=== PATIENT | female | born 1960 | race African-American/Black ===

== ENCOUNTER 2021-01-09 11:36 | Inpatient (IN) | payer BC ==
[~2021-01-09] VITALS: Ht 165.1 cm; Wt 90.8 kg
[2021-01-09] MEDS ORDERED: IBUPROFEN 600 MG TABLET. PO ONE (12:00)
[2021-01-09] MEDS ORDERED: IV NORMAL SALINE 1,000ML 1,000 ML IV ONE ×2 (12:00→13:15)
[2021-01-09 12:25] LABS: BASO % 0 % (0-3); EOS % 0 % (0-3); HEMATOCRIT 42.3 % (36.0-47.0); HEMOGLOBIN 14.3 g/dL (12.0-15.5); LYMPH # 0.9 x10^3/uL (1.0-4.8); LYMPH % 13 % (24-48); MEAN CORPUSCULAR HEMOGLOBIN 28 pg (25-35); MEAN CORPUSCULAR HGB CONC 34 g/dL (31-37); MEAN CORPUSCULAR VOLUME 84 fL (79-100); MONO # 0.5 x10^3/uL (0.0-1.1); MONO % 7 % (0-9); NEUT # 5.7 x10^3uL (1.8-7.7); NEUT % 80 % (31-73); PLATELET COUNT 130 x10^3/uL (140-400); RED BLOOD COUNT 5.02 x10^6/uL (3.50-5.40); RED CELL DISTRIBUTION WIDTH 14.4 % (11.5-14.5); WHITE BLOOD COUNT 7.1 x10^3/uL (4.0-11.0)
--- NOTE | 2021-01-09 12:36 | PHYS DOC ---
Past History Past Surgical History: No Surgical History (GUSTAVO RIVERA APRN) General Adult EDM: Chief Complaint: FEVER HPI: HPI: Patient is a 60-year-old female who presents with for fever and balance issues. states "she has been walking funny for a couple of days". Patient denies weakness, dizziness, chest pain, cough, nausea/vomiting/diarrhea. "I felt a little bit short of breath". Patient's temperature on arrival is 103. Denies taking medication prior to arrival. Patient is alert and oriented x3. Patient states "I got the Holger & Holger vaccine". Denies medical history. (GUSTAVO RIVERA APRN) Review of Systems: Review of Systems: Constitutional: Reports fever and chills Eyes: Denies change in visual acuity HENT: Denies nasal congestion or sore throat Respiratory: Denies cough or shortness of breath Cardiovascular: Denies chest pain or edema GI: Denies abdominal pain, nausea, vomiting, bloody stools or diarrhea : Denies dysuria Musculoskeletal: Denies back pain or joint pain Integument: Denies rash Neurologic: Denies headache, focal weakness or sensory changes. Reports balance issues with walking Endocrine: Denies polyuria or polydipsia Lymphatic: Denies swollen glands Psychiatric: Denies depression or anxiety (GUSTAVO RIVERA APRN) Current Medications: Current Meds: Current Medications Medications (Trade) Dose Ordered Sig/Abdias Start Time Stop Time Status Last Admin Dose Admin Ibuprofen (Motrin) 600 mg 1X ONCE 01/09/21 12:00 01/09/21 12:01 UNV Sodium Chloride 1,000 ml @ 1,000 mls/hr 1X ONCE 01/09/21 12:00 01/09/21 12:59 UNV (GUSTAVO RIVERA MENTAL HEALTH COUNSELOR) Physical Exam: PE: Constitutional: Well developed, well nourished, no acute distress. Decreased awareness, delayed responses HENT: Normocephalic, atraumatic, bilateral external ears normal, oropharynx moist, no oral exudates, nose normal. [] Eyes: PERRLA, EOMI, conjunctiva normal, no discharge. [] Neck: Normal range of motion, no tenderness, supple, no stridor. [] Cardiovascular:Heart rate sinus tachycardia, no murmur [] Lungs & Thorax: Bilateral breath sounds clear to auscultation [] Abdomen: Bowel sounds normal, soft, no tenderness, no masses, no pulsatile masses. [] Skin: Warm, dry, no erythema, no rash. [] Back: No tenderness, no CVA tenderness. [] Extremities: No tenderness, no cyanosis, no clubbing, ROM intact, no edema. [] Neurologic: unstable gait,Alert and oriented X 3, normal sensory function, no focal deficits noted. [] Psychologic: Affect normal, judgement normal, mood normal. [] (GUSTAVO RIVERA APRN) Current Patient Data: Vital Signs: Vital Signs Date Time Temp Pulse Resp B/P (MAP) Pulse Ox O2 Delivery O2 Flow Rate FiO2 01/09/21 11:56 103.2 120 24 158/90 93 Room Air (GUSTAVO RIVERA APRN) EKG: EKG: [] (GUSTAVO RIVERA APRN) Radiology/Procedures: Radiology/Procedures: []EXAMINATION: XR CHEST 1V CLINICAL HISTORY: Shortness of breath EXAM DATE/TIME: 01/09/2021 12:07 PM COMPARISON: None FINDINGS: Lines, Tubes, and Devices: None. Cardiomediastinal Silhouette: Normal heart size. Aortic atherosclerotic calcification. Lungs and Pleura: Bilateral patchy opacities with more confluent areas of hazy opacity in the peripheral left mid and lower lung zones. Small left pleural effusion. Bones and Soft Tissues: Degenerative changes of the thoracic spine. IMPRESSION: Small left pleural effusion and bilateral airspace disease, greater on the left. Electronically signed by: Keyon Feng DO (01/09/2021 12:33 PM) [id number] EXAMINATION: CT head without IV contrast INDICATION:60 years, Female, altered mental status. COMPARISON: None TECHNIQUE: Spiral acquisition of contiguous images from the skull base to the vertex were obtained. Sagittal and coronal 2D reformatted series were provided by the technologist. Soft tissue and bone window algorithms were reviewed. Exposure: One or more of the following individualized dose reduction techniques were utilized for this examination: 1. Automated exposure control 2. Adjustment of the mA and/or kV according to patient size 3. Use of iterative reconstruction technique. FINDINGS: Neither mass, midline shift, intracranial hemorrhage, acute/subacute ischemic changes, nor extraaxial fluid collections are seen. The brain parenchyma is normal in appearance. The ventricles are normal in size. The paranasal sinuses, mastoid air cells, and middle ears are clear. The orbital contents appear within normal limits. IMPRESSION: No evidence of acute intracranial abnormality. Electronically signed by: Bal Null MD (01/09/2021 2:50 PM) [facility] (GUSTAVO RIVERA APRN) Heart Score: C/O Chest Pain: No Risk Factors: Risk Factors: DM, Current or recent (<one month) smoker, HTN, HLP, family history of CAD, obesity. Risk Scores: Score 0 - 3: 2.5% MACE over next 6 weeks - Discharge Home Score 4 - 6: 20.3% MACE over next 6 weeks - Admit for Clinical Observation Score 7 - 10: 72.7% MACE over next 6 weeks - Early Invasive Strategies (GUSTAVO RIVERA APRN) Course & Med Decision Making: Course & Med Decision Making Pertinent Labs and Imaging studies reviewed. (See chart for details) [] 60-year-old female who presents with fever and trouble walking. states that patient's had trouble walking for the last couple of days. Denies recent injury or fall. Patient denies pain, shortness of breath, cough, n ausea/vomiting/diarrhea. Patient is febrile on arrival. Patient symptoms are was 103. Patient given 60 mg of Motrin to treat fever. Patient is tachycardic, 120s. Normal saline bolus given. Patient is alert and oriented but has a decreased awareness, delayed response and unsteady gait. Denies weakness or sensory changes. Patient reports getting the Holger & Holger vaccine. Patient swabbed for Covid. Patient almost likely need to be admitted for sepsis, PUI. Chest x-ray shows left pleural effusion, bilateral patchy opacities. Patient given IV Rocephin, azithromycin, dexamethasone. Second normal saline bolus. BUN 21, creatinine 2.0. No previous visits to compare. D Dimer 3.50. CTA chest and CT head ordered. Reassessed patient and temperature is 99.7. Patient placed on 2 L nasal cannula. O2 dropping to high 80s with ambulation and sleeping. Spoke with Dr. Yanez, who will admit patient for sepsis and PUI. (GUSTAVO RIVERA APRN) Dragon Disclaimer: Sonny Disclaimer: This electronic medical record was generated, in whole or in part, using a voice recognition dictation system. (GUSTAVO RIVERA APRN) Attending Co-Sign The patient was seen and interviewed as well as examined at the bedside. The chart was reviewed. The case was discussed. Agree with the plan of care. (REANNA MCKEE DO) Departure Departure: Impression: Primary Impression: Sepsis Qualified Codes: A41.9 - Sepsis, unspecified organism Additional Impression: Person under investigation for COVID-19 Disposition: ADMITTED INPATIENT Admitting Physician: Arsenio Yanez (GUSTAVO RIVERA APRN) Condition: STABLE Referrals: VIVIANE RAO (PCP) GUSTAVO RIVERA APRN Jan 09, 2021 12:35 REANNA MCKEE DO Jan 10, 2021 06:24
[2021-01-09 12:38] LABS: CALCIUM 8.4 mg/dL (8.5-10.1); POTASSIUM 3.6 mmol/L (3.5-5.1)
[2021-01-09 12:44] LABS: ALBUMIN/GLOBULIN RATIO 0.6 (1.0-1.7); TOTAL BILIRUBIN 0.6 mg/dL (0.2-1.0)
[2021-01-09 12:54] LABS: C REACTIVE PROTEIN 270.5 mg/L (0-3.3)
[2021-01-09] MEDS ORDERED: AZITHROMYCIN 500 MG in IV NORMAL SALINE 250ML 250 ML IV ONE (13:15)
[2021-01-09] MEDS ORDERED: DEXAMETHASONE SOD PHOS 10 MG/ML VIAL. IVP ONE (13:15)
[2021-01-09] MEDS ORDERED: IV NORMAL SALINE 50ML 50 ML ONE (13:24)
[2021-01-09] MEDS ORDERED: AZITHROMYCIN 500 MG VIAL. IV ONE (13:24)
[2021-01-09] MEDS ORDERED: cefTRIAXone SODIUM 1 GM VIAL ONE (13:24)
[2021-01-09] MEDS ORDERED: IV NORMAL SALINE 250ML 250 ML ONE (13:24)
[2021-01-09] MEDS ORDERED: CONTRAST GIVEN. MC PRN (14:00)
[2021-01-09] MEDS ORDERED: IOHEXOL 350 MG/ML 100 ML VIAL. IV ONE (14:00)
[2021-01-09 14:01] LABS: % BANDS 33 % (0-9); % EOS 1 % (0-5); % LYMPHS 13 % (24-48); % METAS 2 % (0-0); % MONOS 7 % (0-10); % SEGS 44 % (35-66); PLT ESTIMATE ADEQUATE (ADEQUATE)
--- NOTE | 2021-01-09 14:53 | RAD ---
EXAMINATION: CT head without IV contrast INDICATION:60 years, Female, altered mental status. COMPARISON: None TECHNIQUE: Spiral acquisition of contiguous images from the skull base to the vertex were obtained. S agittal and coronal 2D reformatted series were provided by the technologist. Soft tissue and bone win jacqueline algorithms were reviewed. Exposure: One or more of the following individualized dose reduction techniques were utilized for thi s examination: 1. Automated exposure control 2. Adjustment of the mA and/or kV according to patient size 3. Use of iterative reconstruction technique. FINDINGS: Neither mass, midline shift, intracranial hemorrhage, acute/subacute ischemic changes, nor extraaxial fluid collections are seen. The brain parenchyma is normal in appearance. The ventricles are normal in size. The paranasal sinuses, mastoid air cells, and middle ears are clear. The orbital contents appear within normal limits. IMPRESSION: No evidence of acute intracranial abnormality. Electronically signed by: Bal Null MD (01/09/2021 2:50 PM) [facility]
--- NOTE | 2021-01-09 15:08 | RAD ---
EXAMINATION: CTA Chest With IV contrast INDICATION:60 years, Female, elevated d-dimer, shortness of breath, COVID positive. COMPARISON: None. TECHNIQUE: Spiral CTA was obtained from the jugular notch through the posterior costophrenic recess. 3-D MIPS, sagittal and coronal reformats were obtained. Exposure: One or more of the following individualized dose reduction techniques were utilized for thi s examination: 1. Automated exposure control 2. Adjustment of the mA and/or kV according to patient size 3. Use of iterative reconstruction technique. FINDINGS: LUNGS/PLEURA: Central airways are patent. Multifocal bilateral consolidative opacities, worst in the left upper lobe. Bibasilar dependent subsegmental atelectasis. MEDIASTINUM: Multiple enlarged mediastinal and right hilar lymph nodes; the largest lymph node in the right paratracheal region measures 1.3 cm in short axis. The thoracic aorta and pulmonary arteries a re normal in caliber. Evaluation of the pulmonary arteries is limited to the level of segmental arter ies due to contrast bolus timing. No evidence of pulmonary embolism to the segmental levels. The hear t is normal in size. No pericardial effusion. No detectable calcified coronary atherosclerosis. The v isualized thyroid and the esophagus are unremarkable. AXILLA/SOFT TISSUE: No supraclavicular or axillary adenopathy. Regional soft tissues are within eddi l limits. UPPER ABDOMEN: Fluid density 1.1 cm focus in the posterior right hepatic lobe, favors a cyst. Subcent imeter lesions in the upper lobe, too small to characterize. Nodular thickening of the adrenal glands without discrete nodule. BONES: No evidence of acute fractures or aggressive osseous lesions. IMPRESSION: 1. No evidence of pulmonary embolism to the segmental level. 2. Multifocal bilateral consolidative opacities, worst in the left upper lobe, consistent with multi focal pneumonia. Consider COVID 19 pneumonia given patient's history. 3. Multiple enlarged mediastinal lymph nodes, likely reactive. Recommend follow-up CT to ensure reso lution. Electronically signed by: Bal Null MD (01/09/2021 3:06 PM) [facility]
--- NOTE | 2021-01-09 16:23 | NUR ---
Admission note Pt admitted to room 103 via ems from ED at 1620. Dr ball notified of admission
[2021-01-09 16:34] VITALS: BP 144/79
[2021-01-09] MEDS ORDERED: ENOXAPARIN 40 MG/0.4 ML SYRINGE. SQ SCH (18:30)
[2021-01-09] MEDS: IV NORMAL SALINE 1,000ML 1,000 ML IV SCH (19:18)
[2021-01-09 19:42] VITALS: BP 110/69
[2021-01-09] MEDS: LACTOBACILLUS RHAMNOSUS GG 1 CAPSULE. PO SCH (20:22)
--- NOTE | 2021-01-09 20:23 | HP ---
ADMIT DATE: 01/09/2021 HISTORY OF PRESENT ILLNESS: The patient is a 60-year-old -[place] female patient who presented to the Emergency Room with a complaint of fever, cough, stuffy nose, and also unsteady, feeling dizzy. Her stated that she has been walking funny for a couple of days. The patient denied any weakness, dizziness, chest pain. Denied any loss of taste. Her temperature on arrival to the emergency room was 103 Fahrenheit, denied taking any medication prior to arrival. She apparently was vaccinated and got Holger and Holger vaccine for COVID-19. She denied any medical problems and was extensively investigated in the Emergency Room where she has had a CBC which showed normal white cell count. Her chemistry was unremarkable; however, her CK was high at 576. Lactate dehydrogenase was high at 358. Her kidney function was abnormal; however, there are no other labs to compare with. Her D-dimer was elevated and the patient was admitted. She also had CT angio of the chest, which showed no evidence of pulmonary embolism to the segmental level. She has multifocal bilateral consolidative opacities, worse in the left upper lobe consistent with multifocal pneumonia. Consider COVID-19 pneumonia and given the patient's history, she has multiple enlarged mediastinal lymph nodes, likely reactive. Recommend followup CT to ensure resolution. The patient was treated with IV dexamethasone, azithromycin and ceftriaxone, was admitted for further evaluation and treatment. PAST MEDICAL HISTORY: Unremarkable. PAST SURGICAL HISTORY: Significant for tubal ligation. ALLERGIES: She has no known drug allergies. MEDICATIONS: She is currently on no medication by prescription or [id number]. FAMILY HISTORY: Noncontributory. SOCIAL HISTORY: She is , has 2 daughters and 2 sons. She does not smoke, drink alcohol or do recreational drugs. 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 REVIEW OF SYSTEMS: As per history of present illness. PHYSICAL EXAMINATION: GENERAL: On arrival to the emergency room, the patient was tachypneic, tachycardic, febrile. VITAL SIGNS: Her heart rate was 120, blood pressure 158/90, temperature was 103.2, respiratory rate 24, and oxygen saturation was 93% on room air. HEAD, EYES, EARS, NOSE, AND THROAT: Normocephalic, atraumatic. NECK: Supple. HEART: Showed normal first and second heart sounds. No gallop, rub or murmur. CHEST: Shows central trachea, equal bilateral chest expansion, air entry, vesicular breath sounds. I could not appreciate any crepitation or rhonchi. ABDOMEN: Distended, soft, nontender. No guarding or rigidity. No organomegaly. All hernial orifice intact. Bowel sounds normal. NEUROLOGIC: She is awake, alert. Normal sensory and motor function. Her affect, judgment and mood were normal. LABORATORY DATA: Her lab work showed a white cell count of 7000, hemoglobin 14, hematocrit 42, MCV 84 and platelet count of 130,000 with a manual differential showed 80% polymorphs, 13% lymphocytes and 7% monocytes. Her chemistry showed a serum sodium of 138, potassium 3.6, chloride 101, bicarbonate 21, anion gap of 16, BUN 21, creatinine 2, estimated GFR was 31 mL per minute. Her glucose 130, lactic acid was 1.5, calcium was 8.4. Total bilirubin 0.6. AST, ALT elevated. Alkaline phosphatase were normal. Her lactate dehydrogenase was high at 358, CK was 576. C-reactive protein was high at 270. Her D-dimer was high at 3.50. Her imaging studies showed a chest x-ray, showed small left pleural effusion, bilateral airspace disease, greater on the left. The CT scan of the head showed no evidence of acute intracranial abnormality. Neither mass, midline shift or intracranial hemorrhage, acute or subacute ischemic changes, nor extraaxial fluid collections are seen. The brain parenchyma is normal in appearance. The ventricles are normal in size. The paranasal sinuses, mastoid air cells and middle ears are clear. The orbital contents appear within normal limits. ASSESSMENT AND PLAN: The patient was admitted with possible COVID-19 pneumonia, although she has already had her Holger and Holger vaccine. She has multiple abnormalities including acute versus chronic kidney injury. D-dimer was high, but no evidence of pulmonary emboli. She has multifocal pneumonia and also deranged liver enzyme and also thrombocytopenia. My plan is to continue with IV antibiotic. Continue with steroids. Continue with DVT prophylaxis. I will repeat all her lab work again tomorrow and monitor her closely and decide the further management according to her response. ARIELLA/DEVAN DR: Noemi TID: [id number]
[2021-01-09 23:42] VITALS: BP 107/60
--- NOTE | 2021-01-10 00:45 | EKG ---
[address] [address] Test Date: 2021-01-09 Test Time: 12:20:53 Pat Name: ARMANDO JOY Department: Room: Gender: F [employer] Worker: CLAIRE : 1960 Requested By: GUSTAVO RIVERA Order Number: [id number] Reading MD: Measurements Intervals [place] Rate: 117 P: -7 NV: 134 QRS: -22 QRSD: 64 T: 5 QT: 362 QTc: 510 Interpretive Statements SINUS TACHYCARDIA LEFTWARD AXIS QRS(T) CONTOUR ABNORMALITY CONSISTENT WITH ANTEROSEPTAL INFARCT AGE UNDETERMINED ABNORMAL ECG RI6.02 No previous ECG available for comparison
[2021-01-10] MEDS: IV NORMAL SALINE 1,000ML 1,000 ML IV SCH (04:30)
[2021-01-10 04:46] VITALS: BP 139/92
[2021-01-10 04:57] LABS: CLARITY,URINE CLEAR; COLOR,URINE YELLOW
[2021-01-10 04:58] LABS: BILIRUBIN,URINE NEG (NEG); GLUCOSE,URINE NEG (NEG); NITRITE,URINE NEG (NEG); UROBILINOGEN,URINE 0.2 mg/dL (0.2 mg/dL)
[2021-01-10 05:00] LABS: BARBITURATES NEG (NEG); BENZODIAZEPINES NEG (NEG); CANNABINOIDS NEG (NEG); COCAINE NEG (NEG); METHADONE NEG (NEG); OPIATES NEG (NEG); PHENCYCLIDINE NEG (NEG)
[2021-01-10 05:12] LABS: BACTERIA,URINE 0 /HPF (0-FEW); SQUAMOUS EPITHELIAL CELL,UR MOD /LPF; WBC,URINE 0 /HPF (0-4)
[2021-01-10 05:15] LABS: AMPHETAMINE/METHAMPHETAMINE NEG (NEG)
[2021-01-10 06:57] LABS: HEMATOCRIT 38.5 % (36.0-47.0); RED BLOOD COUNT 4.59 x10^6/uL (3.50-5.40); RED CELL DISTRIBUTION WIDTH 14.7 % (11.5-14.5); WHITE BLOOD COUNT 5.4 x10^3/uL (4.0-11.0)
[2021-01-10 07:16] LABS: ALBUMIN 2.4 g/dL (3.4-5.0); ALBUMIN/GLOBULIN RATIO 0.6 (1.0-1.7); CALCIUM 7.8 mg/dL (8.5-10.1); CREATININE 1.3 mg/dL (0.6-1.0); GFR 50.9; TOTAL BILIRUBIN 0.3 mg/dL (0.2-1.0); TOTAL PROTEIN 6.7 g/dL (6.4-8.2)
[2021-01-10] MEDS: LACTOBACILLUS RHAMNOSUS GG 1 CAPSULE. PO SCH ×2 (08:18→21:07)
[2021-01-10] MEDS: AZITHROMYCIN 250 MG TABLET. PO SCH (08:18)
[2021-01-10] MEDS: DEXAMETHASONE SOD PHOS 10 MG/ML VIAL. IV SCH (08:18)
[2021-01-10 10:41] VITALS: BP 137/87
[2021-01-10] MEDS: IV DEXTROSE 5 %-0.2 % NACL 1,000 ML IV SCH (13:04)
[2021-01-10 15:52] VITALS: BP 142/78
[2021-01-10 19:14] VITALS: BP 119/75
[2021-01-10 23:45] VITALS: BP 139/82
[2021-01-11] MEDS: IV DEXTROSE 5 %-0.2 % NACL 1,000 ML IV SCH ×2 (00:50→12:04)
--- NOTE | 2021-01-11 04:26 | PN ---
DATE: 01/10/2021 SUBJECTIVE: The patient is sitting at the edge of the bed comfortably, in no apparent distress. On questioning her, she denied any complaint, in particular, she has no more chest pain, shortness of breath. Continued to have mild dizziness when she stands up. Her oxygen saturation is 95% on room air. PHYSICAL EXAMINATION: GENERAL: When I examined her, she looked well and was clearly in no apparent respiratory distress. No pallor, jaundice, cyanosis, or thyromegaly. No jugular venous distention. No lower limb edema. VITAL SIGNS: Her heart rate was 71, blood pressure is 139/92, temperature 97.2, respiratory rate was 18 and oxygen saturation was 98% on 2 liters of oxygen. HEAD, EYES, EARS, NOSE, AND THROAT: Normocephalic, atraumatic. NECK: Supple. HEART: Normal first and second heart sounds. No gallop or murmur. CHEST: Shows central trachea, equal bilateral expansion, air entry, . I could not appreciate any crepitation or rhonchi. ABDOMEN: Distended, soft, nontender. NEUROLOGIC: She is grossly intact. Her intake was 3300, no output was recorded. LABORATORY DATA: This morning showed a white cell count 5400, hemoglobin 13, hematocrit 39, MCV 84 and platelet count of 108,000. Her chemistry showed a serum sodium of 145, potassium 4, chloride 110, bicarbonate 21, anion gap of 14, BUN 25, creatinine 1.3. Estimated GFR was mL per minute. Her glucose 126, calcium was 7.8. Total bilirubin and alkaline phosphatase were normal. AST, ALT slightly elevated. Her lactate dehydrogenase is down to 361. CK was 579. Total protein was 6.7, albumin was 2.4. Her D-dimer was high at 3.5. Urinalysis was essentially unremarkable and her coronavirus by PCR was negative. ASSESSMENT: 1. Acute hypoxic respiratory failure. 2. Community-acquired pneumonia. Her COVID-19 by PCR was negative. She did receive her vaccination, from [employer] vaccine. 3. Acute kidney injury, improving. The creatinine is down from 2-1.3. 4. D-dimer was elevated, but no evidence of pulmonary embolism. 5. Thrombocytopenia. 6. Mild rhabdomyolysis, slightly improving. 7. Thrombocytopenia, worsening. Her platelet count is down to 108 from 130,000. PLAN: My plan is to continue with IV antibiotic. Continue with IV fluid. I will change the IV fluid to D5 half normal and I would probably get a physical and occupational therapy start her on SCDs and discontinue the Lovenox as her platelets are trending down. BLADE/GHISLAINE/SHAWNA DR: Noemi TID: [id number]
[2021-01-11 06:33] VITALS: BP 124/81
[2021-01-11 07:36] LABS: HEMATOCRIT 37.5 % (36.0-47.0); HEMOGLOBIN 12.6 g/dL (12.0-15.5); RED BLOOD COUNT 4.45 x10^6/uL (3.50-5.40); RED CELL DISTRIBUTION WIDTH 14.5 % (11.5-14.5); WHITE BLOOD COUNT 8.8 x10^3/uL (4.0-11.0)
[2021-01-11 07:52] LABS: CREATININE 1.1 mg/dL (0.6-1.0); GFR 61.7
[2021-01-11] MEDS: LACTOBACILLUS RHAMNOSUS GG 1 CAPSULE. PO SCH ×2 (08:12→21:00)
[2021-01-11] MEDS: AZITHROMYCIN 250 MG TABLET. PO SCH (08:12)
[2021-01-11] MEDS: DEXAMETHASONE SOD PHOS 10 MG/ML VIAL. IV SCH (08:13)
[2021-01-11 10:24] VITALS: BP 126/80
[2021-01-11 15:36] VITALS: BP 146/81
[2021-01-11 19:45] VITALS: BP 162/93
[2021-01-11 22:49] VITALS: BP 126/72
--- NOTE | 2021-01-12 02:11 | PN ---
DATE: 01/11/2021 SUBJECTIVE: The patient is resting, slightly propped up in bed, in no apparent respiratory distress. She is awake, alert. On questioning her, she stated that she is feeling much improved. She continues to have cough; however, she has no fever. Her kidney function has steadily improved. Her creatinine came down from 2-1.1. OBJECTIVE: LUNGS: Continued to have some crackles, mostly on the left side. Very few scattered rhonchi. ABDOMEN: Slightly distended, soft, nontender. NEUROLOGIC: She was grossly intact. Her intake was 3300, no output was recorded. LABORATORY DATA: This morning showed a white cell count of 8800, hemoglobin 12.6, hematocrit 37, MCV 84, and platelet count of 135,000. Her chemistry showed a serum sodium 140, potassium 4, chloride 106, bicarbonate 22, anion gap of 12, BUN 25, creatinine 1.1. Estimated GFR was 61 mL per minute. Her glucose 178, calcium was 8, and a serum CK was 426. ASSESSMENT: 1. Acute hypoxic respiratory failure, improved. Today, her oxygen saturation was 99% on room air. 2. Community-acquired pneumonia. Her COVID-19 by PCR was negative. She was vaccinated by Holger and Holger vaccine. 3. Acute kidney injury, improving. Her creatinine is down from 2-1.1. 4. D-dimer was elevated; however, no evidence of pulmonary embolism. 5. Thrombocytopenia, improving. Her platelet count went up from 108 to 135. 6. Mild rhabdomyolysis, improving. PLAN: To continue with IV antibiotic, discontinue IV fluid. I will discharge her tomorrow to continue on oral antibiotic. ATUL DR: Noemi TID: [id number]
[2021-01-12 05:52] VITALS: BP 151/91
[2021-01-12 07:15] LABS: CALCIUM 8.1 mg/dL (8.5-10.1); CREATININE 1.1 mg/dL (0.6-1.0); GFR 61.7; POTASSIUM 3.4 mmol/L (3.5-5.1)
[2021-01-12] MEDS ORDERED: DEXAMETHASONE SOD PHOS 10 MG/ML VIAL. IV SCH (09:00)
[2021-01-12] MEDS: LACTOBACILLUS RHAMNOSUS GG 1 CAPSULE. PO SCH (09:18)
[2021-01-12] MEDS: AZITHROMYCIN 250 MG TABLET. PO SCH (09:18)
[2021-01-12 11:35] VITALS: BP 135/79
[2021-01-12] MEDS ORDERED: CEFD300C PO (13:11)
[2021-01-12] MEDS ORDERED: AZIT250T PO (13:11)
--- NOTE | 2021-01-12 15:50 | NUR ---
discharge note pt discharged at 1500 via ambulation accompanied by family member. pt given written and verbal instructions with verbal statement of understanding received.
--- NOTE | 2021-01-12 20:33 | DS ---
DATE OF DISCHARGE: 01/12/2021 HOSPITAL COURSE: The patient is a 60-year-old -[place] female patient who was admitted on 01/09/2021 to the Emergency Department of [facility] [place] with a complaint of fever, cough, stuffy nose, unsteady gait and feeling dizzy. The patient denied any weakness, dizziness, chest pain. Denied any loss of taste. Her temperature on arrival to the emergency room was 103 Fahrenheit. Denied taking any medication prior to arrival. She apparently was vaccinated and got Holger and Holger vaccine for COVID-19. She denied any medical problems, was extensively investigated in the emergency room, was found to have a slightly elevated creatine kinase also her kidney function was abnormal. D-dimer was elevated. The patient was admitted. She also had a CT angio of the chest that showed no evidence of pulmonary emboli; however, she has multifocal bilateral consolidative opacities, worse in the left upper lobe consistent with multifocal pneumonia. She has multiple enlarged mediastinal lymph nodes, likely reactive. She was started on IV dexamethasone, azithromycin and ceftriaxone as well as IV fluid and she did extremely well, has been afebrile since admission. Her white cell count remains stable and normal and her kidney function has improved. Her creatinine came down from 2-1.1. Her creatine kinase came down and she remained hemodynamically stable, afebrile, maintaining her oxygen saturation of 95% on room air. A decision was made to discharge her home to finish her treatment as an outpatient. PHYSICAL EXAMINATION: GENERAL: When I examined her, she looked well and was clearly in no apparent respiratory distress. No pallor, jaundice, cyanosis or thyromegaly. No jugular venous distention. No limb edema. VITAL SIGNS: Her heart rate was 58, blood pressure is 135/79, temperature was 97.7, respiratory rate 20, and oxygen saturation was 93%. HEAD, EYES, EARS, NOSE, EYES, NOSE, AND THROAT: Normocephalic, atraumatic. NECK: Supple. HEART: Normal first and second heart sounds, no gallop, rub or murmur. CHEST: Clear to auscultation, no crepitation or rhonchi. ABDOMEN: Distended, soft, nontender. NEUROLOGIC: She was grossly intact. LABORATORY DATA: This morning showed a serum sodium 143, potassium 3.4, chloride 109, bicarbonate 24, anion gap of 10, BUN 24, creatinine 1.1. Estimated GFR was 63 mL per minute. Her glucose was 111, calcium was 8.1. White cell count was 8800, hemoglobin 12.6, hematocrit 37, MCV 84 and platelet count of 135,000. Her coronavirus by PCR was negative. Her toxic screen was negative. Urinalysis was unremarkable. DISCHARGE MEDICATIONS: The patient was discharged home to continue on azithromycin 250 mg once a day for 3 more days and cefdinir 300 mg twice a day for 7 more days as well as tapering course of dexamethasone. FINAL DISCHARGE DIAGNOSES: 1. Acute hypoxic respiratory failure, improved. The patient is now on room air, maintaining her oxygen saturation at 96%. 2. Community-acquired pneumonia, responding very well to ceftriaxone and Zithromax, was discharged on cefdinir and Zithromax. 3. COVID-19 pneumonia was suspected. However, her PCR was negative. She was vaccinated by Holger and Holger vaccine. 4. Acute kidney injury, improved. Her creatinine came down from 2-1.15. D-dimer was elevated; however, no evidence of pulmonary embolism. 5. Thrombocytopenia, improved. Her platelet has risen from 108-135. FELIZ DR: Noemi TID: [id number]
== END 2021-01-12 16:03 | disposition home or self-care (01) | DRG 871 ==
LOC: ER 11:36 → 1 SOUTH 15:30
PROVIDERS: ADMIT Internal Medicine; ATTEND Internal Medicine
DX: A41.9 Sepsis, unspecified organism (principal); J96.01 Acute respiratory failure with hypoxia; J18.9 Pneumonia, unspecified organism; M62.82 Rhabdomyolysis; N17.9 Acute kidney failure, unspecified; D69.6 Thrombocytopenia, unspecified; R59.0 Localized enlarged lymph nodes; Z98.51 Tubal ligation status; Z20.822 Contact with and (suspected) exposure to COVID-19
CPT/HCPCS: 36415; 70450; 71045; 71275; 80048; 80053; 80307; 81001; 82550; 83605; 83615; 85007; 85025; 85027; 85379; 86140; 87040; 93005; 96361; 96365; 96375; J0456; J0696; J1100; J1650; J7050; Q9967; U0003; 99285-25; J7030

== ENCOUNTER → 2021-02-18 | Outpatient (CLI) | payer BC ==
[~2021-02-18] MED LIST: AZIT250T PO; CEFD300C PO
--- NOTE | 2021-02-18 16:48 | RAD ---
EXAM: Chest CT without intravenous contrast. HISTORY: Essential lymphadenopathy. TECHNIQUE: Computed tomographic images of the chest were obtained without contrast. Multiplanar refor matting was performed. *One or more of the following individualized dose reduction techniques were utilized for this examina tion: 1. Automated exposure control. 2. Adjustment of the mA and/or kV according to patient size. 3. Use of iterative reconstruction technique. COMPARISON: 01/09/2021. FINDINGS: The heart is normal in size. There has been interval decrease in trace pericardial fluid. T here has been interval decrease in previously demonstrated mediastinal lymphadenopathy. For reference purposes, there is a right paratracheal lymph node measuring 1.2 cm, compared to a prior measurement of 1.6 cm. There is no pneumothorax or pleural effusion. There has been near complete resolution of previously d emonstrated multifocal pneumonia. There is faint residual groundglass opacity within the anterior jagjit ateral upper lobes and there is residual infiltrate, atelectasis or scarring within the lingula. Ther e is posterior dependent and basilar atelectasis. There is an 8 mm nodule within the medial right low er lobe, stable in appearance. There is a 4 mm nodule within the right middle lobe along the horizont al fissure, likely obscured on the prior study due to aforementioned infiltrate. This likely a fissur al lymph node. /Of the upper abdomen demonstrates small simple hepatic cysts. Follow-up is not routinely performed f or simple cysts. There is no acute finding. There is no acute or suspicious osseous finding. IMPRESSION: 1. Interval decrease in previously demonstrated mediastinal lymphadenopathy. This favors a benign seng ctive etiology. 2. Near complete resolution of previously demonstrated multifocal pneumonia. There is a small amount of groundglass opacity within the anterior bilateral upper lobes which may be due to residual infiltr ate or scarring. There is also minimal infiltrate, scarring or atelectasis within the lingula. 3. Stable 8 mm nodule within the right lower lobe. There is also a 4 mm suspected lymph node within t he right middle lobe along the horizontal fissure which may be obscured on the prior exam. Given the size of the larger nodule, follow-up in 3 months is recommended. Electronically signed by: Yolette Adkins MD (02/18/2021 4:46 PM) [id number]
== END ==
LOC: CT 16:12
PROVIDERS: ATTEND Physician Assistant Medical
DX: R59.0 Localized enlarged lymph nodes (principal); R91.8 Other nonspecific abnormal finding of lung field; J98.11 Atelectasis; K76.89 Other specified diseases of liver
CPT/HCPCS: 71250

== ENCOUNTER 2021-10-12 11:32 | Emergency (ER) | payer BC ==
[~2021-10-12] VITALS: Ht 165.1 cm; Wt 90.8 kg
[2021-10-12] MEDS ORDERED: ACETAMINOPHEN/CODEINE 300/30MG TABLET PO ONE (12:45)
--- NOTE | 2021-10-12 12:46 | PHYS DOC ---
Past History Past Surgical History: No Surgical History Alcohol Use: None General Adult EDM: Chief Complaint: KNEE INJURY HPI: HPI: Patient is a 17-year-old female coming in for left lateral knee pain. Patient states that the knee pain started earlier today when she was cooking in her kitchen. Patient states she had been rotating up appearing food when the pain came on suddenly. Has been able to bear weight. Has noticed swelling to her knee. Denies any prior injuries. Denies any blood thinner use. has not take anything for pain Review of Systems: Review of Systems: All other systems within normal limits except for as noted in the HPI Allergies: Allergies: Allergies Coded Allergies Type Severity Reaction Last Updated Verified No Known Drug Allergies 10/12/21 No Physical Exam: PE: Constitutional: Well developed, well nourished, no acute distress, non-toxic appearance. [] HENT: Normocephalic, atraumatic, bilateral external ears normal, nose normal. [] Eyes: PERRLA, conjunctiva normal, no discharge. [] Neck: No rigidity, supple, no stridor. [] Cardiovascular: Regular rate and rhythm, brisk cap refill [] Lungs & Thorax: Non labored symmetric respirations, no tachypnea or respiratory distress [] Abdomen: Soft, nondistended. Skin: Warm, dry, no erythema, no rash. [] Back: Unremarkable Extremities: No deformities, range of motion grossly intact, no lower extremity edema. Left knee exam: Joint effusion, tenderness around lateral joint line. No varus, valgus, anterior, or posterior laxity [] Neurologic: Alert and oriented X 3, no focal deficits noted. [] Psychologic: Affect normal, judgement normal, mood normal. [] Current Patient Data: Vital Signs: Vital Signs Date Time Temp Pulse Resp B/P (MAP) Pulse Ox O2 Delivery O2 Flow Rate FiO2 10/12/21 11:59 98.4 102 18 135/79 (97) 99 Room Air EKG: EKG: [] Radiology/Procedures: Radiology/Procedures: [][address] [address] IMAGING REPORT Signed PATIENT: ARMANDO JOY FACCOUNT: [id number] : 1960 LOCATION: ER AGE: 61 SEX: F EXAM STATUS: REG ER ORD. PHYSICIAN: BOYD MORA MD REASON: left lateral knee pain, no known injury PROCEDURE: KNEE LEFT 4V Exam performed: 4 views left knee. Clinical indication: Lateral left knee pain, no known injury Date of Service: 10/12/2021 Comparison: None available 4 views [left] knee findings: Normal alignment of the medial and lateral tibiofemoral joint is preserved. The patellofemoral joint appears unremarkable. The articular margins are smooth. There is no fracture or dislocation. Evidence of calcific loose body or joint effusion is absent. Impression: 1. No acute radiographic abnormality seen. Electronically signed by: Heidi Mackenzie MD (10/12/2021 1:29 PM) [facility] DICTATED AND SIGNED BY: HEIDI MACKENZIE MD DATE: 10/12/21 1328 CC: BOYD MORA MD; VIVIANE RAO ~ Heart Score: C/O Chest Pain: No Risk Factors: Risk Factors: DM, Current or recent (<one month) smoker, HTN, HLP, family history of CAD, obesity. Risk Scores: Score 0 - 3: 2.5% MACE over next 6 weeks - Discharge Home Score 4 - 6: 20.3% MACE over next 6 weeks - Admit for Clinical Observation Score 7 - 10: 72.7% MACE over next 6 weeks - Early Invasive Strategies Course & Med Decision Making: Course & Med Decision Making Pertinent Labs and Imaging studies reviewed. (See chart for details) [] Sonny Disclaimer: Sonny Disclaimer: This electronic medical record was generated, in whole or in part, using a voice recognition dictation system. Departure Departure: Impression: Primary Impression: Left lateral knee pain Disposition: HOME / SELF CARE / HOMELESS Condition: STABLE Referrals: VIVIANE RAO (PCP) Patient Instructions: Knee Pain Additional Instructions: Used hinged knee brace when walking around. Follow-up with her primary care provider. Take Tylenol ibuprofen as needed for pain. BOYD MORA MD Oct 12, 2021 12:45
--- NOTE | 2021-10-12 13:32 | RAD ---
Exam performed: 4 views left knee. Clinical indication: Lateral left knee pain, no known injury Date of Service: 10/12/2021 Comparison: None available 4 views [left] knee findings: Normal alignment of the medial and lateral tibiofemoral joint is preserved. The patellofemoral joint appears unremarkable. The articular margins are smooth. There is no fracture or dislocation. Evidence of calcific loose body or joint effusion is absent. Impression: 1. No acute radiographic abnormality seen. Electronically signed by: Heidi Mackenzie MD (10/12/2021 1:29 PM) MAN
[2021-10-12 14:45] VITALS: BP 152/84
== END 2021-10-12 15:00 | disposition home or self-care (01) ==
LOC: ER 11:32
DX: M25.562 Pain in left knee (principal); R22.42 Localized swelling, mass and lump, left lower limb
CPT/HCPCS: 73564; 99283